=== PATIENT | female | born 1960 | race Caucasian/White ===

== ENCOUNTER 2024-04-21 17:30 | Inpatient (IN) | payer BC ==
[~2024-04-21] VITALS: Ht 160 cm; Wt 43.4 kg
[2024-04-21 19:39] LABS: BASOPHILS # (AUTO) 0.1 X10'3 (0-0.2); BASOPHILS % (AUTO) 0.8 % (0-1); EOSINOPHILS % (AUTO) 0.4 % (0-6); HEMATOCRIT 41.1 % (35.0-45.0); HEMOGLOBIN 13.7 g/dl (12.0-16.0); LYMPHOCYTES # (AUTO) 1.8 X10'3 (1.1-4.8); LYMPHOCYTES % (AUTO) 26.5 % (21-51); MEAN CORPUSCULAR HEMOGLOBIN 31.2 PG (27.0-31.0); MEAN CORPUSCULAR HGB CONC 33.4 g/dL (33.0-36.5); MEAN CORPUSCULAR VOLUME 93.3 FL (78-98); MEAN PLATELET VOLUME 9.6 FL (7.4-10.4); MONOCYTES # (AUTO) 0.6 X10'3 (0-0.9); MONOCYTES % (AUTO) 8.1 % (2-12); NEUTROPHILS # (AUTO) 4.4 X10'3 (1.8-7.7); NEUTROPHILS % (AUTO) 64.2 % (42-75); PLATELET COUNT 203 X10'3 (140-440); RED BLOOD COUNT 4.41 X10'6 (4.20-5.60); RED CELL DISTRIBUTION WIDTH 14.3 % (11.5-14.5); WHITE BLOOD COUNT 6.9 X10'3 (4.5-11.0)
[2024-04-21 19:54] LABS: ALANINE AMINOTRANSFERASE 24 U/L (12-78); ALBUMIN 3.8 G/DL (3.4-5.0); ALBUMIN/GLOBULIN RATIO 1.1 (1.1-1.5); ALKALINE PHOSPHATASE 63 IU/L (46-116); ANION GAP 4 (8-16); ASPARTATE AMINO TRANSFERASE 11 U/L (10-37); BILIRUBIN,TOTAL 0.6 MG/DL (0.1-1.0); BLOOD UREA NITROGEN 23 MG/DL (7-18); BUN/CREATININE RATIO 31.9 (10.0-20.0); CALCIUM 9.2 MG/DL (8.5-10.1); CHLORIDE 103 MMOL/L (99-107); CREATININE 0.72 MG/DL (0.40-0.90); GLUCOSE 89 MG/DL (70-104); LIPASE 19 U/L (16-77); POTASSIUM 4.1 MMOL/L (3.5-5.1); SODIUM 139 MMOL/L (135-145); TOTAL PROTEIN 7.2 G/DL (6.4-8.2); eCRCL 55 ML/MIN; eGFR 82 ML/MIN
[2024-04-22 00:23] LABS: URINE HCG NEGATIVE (NEG)
[2024-04-22 00:25] LABS: BILIRUBIN,URINE SMALL (Neg); CLARITY,URINE CLOUDY (Clear); COLOR,URINE YELLOW (Yellow); GLUCOSE, URINE NEGATIVE (Neg); KETONES,URINE 15 mg/dl (Neg); LEUKOCYTE ESTERASE ,URINE NEGATIVE (Neg); NITRITES, URINE NEGATIVE (Neg); OCCULT BLOOD,URINE NEGATIVE (Neg); PROTEIN,URINE 100 mg/dl (Neg)
[2024-04-22 00:36] LABS: UA COLLECTION TYPE CLN CATCH MIDSTREAM
[2024-04-22 00:37] LABS: MUCUS STRANDS MANY /LPF (Neg); SQUAMOUS EPITHELIAL CELL,UR MANY /LPF (FEW)
[2024-04-22 00:38] LABS: BACTERIA,URINE 2+ /HPF (Neg); WBC,URINE 50-100 /HPF (0-4)
[2024-04-22] MEDS: pantoprazole 40 MG vial IV STA (01:02)
[2024-04-22] MEDS: LORazepam 2 mg/ml vial IV ONE (01:03)
[2024-04-22] MEDS: normal saline 1000ml 1,000 ML IV ONE (01:04)
[2024-04-22] MEDS ORDERED: potassium Cl 40MEQ/1/2NS 520ml 520 ML IV PRN (01:10)
[2024-04-22] MEDS ORDERED: magnesium Cl slow-release 64mg tablet PO PRN (01:10)
[2024-04-22] MEDS ORDERED: mag hydrox/Alum hydrox/simeth 30ml oral suspension PO PRN (01:10)
[2024-04-22] MEDS ORDERED: magnesium sulf-water 2g/50mL 50 ML IV PRN (01:10)
[2024-04-22] MEDS ORDERED: ondansetron/PF 4mg/2ml inj IV PRN (01:10)
[2024-04-22] MEDS ORDERED: magnesium hydroxide 30ml (MOM) UD suspension PO PRN (01:10)
[2024-04-22] MEDS ORDERED: acetaminophen 325mg tablet PO PRN ×2 (01:10)
[2024-04-22] MEDS ORDERED: potassium Cl 20 mEq SR tablet PO PRN ×2 (01:10)
[2024-04-22] MEDS ORDERED: LISI20TA28 PO (01:15)
[2024-04-22 01:43] LABS: HEMOGLOBIN A1C 5.7 % (4.5-6.2)
[2024-04-22] MEDS: dextrose 5%-1/2 normal saline 1,000 ML IV SCH (01:56)
[2024-04-22 04:21] LABS: CHOL/HDL RATIO 3.5 (0.00-4.99); CHOLESTEROL 174 MG/DL (0-200); HDL CHOLESTEROL 50 MG/DL (35-60); LDL CHOLESTEROL 101 MG/DL (50-100); MAGNESIUM 1.9 MG/DL (1.5-2.4); POTASSIUM 3.5 MMOL/L (3.5-5.1); TRIGLYCERIDES 81 MG/DL (20-135)
[2024-04-22] MEDS: K and/or MAG REPLACEMENT MC SCH (08:00)
[2024-04-22] MEDS: pantoprazole 40 MG vial IV SCH (08:22)
[2024-04-22] MEDS: enoxaparin 40mg/0.4ml syringe SUBCUT SCH (08:23)
[2024-04-22] MEDS: lisinopril 10 MG tablet PO SCH (08:23)
[2024-04-22] MEDS: CefTRIAXone/D5W-Rocephin 1gm 50 ML IV SCH (08:26)
[2024-04-22] MEDS: atorvastatin 20mg tablet PO SCH (08:26)
[2024-04-22] MEDS: magnesium sulf-water 4G/100mL 100 ML IV PRN (11:34)
[2024-04-22 16:10] VITALS: BP 137/77; PULSE 52; RESP 16
[2024-04-22] MEDS ORDERED: fentaNYL/PF 50MCG/1 ML 2ML syringe ONE (16:11)
[2024-04-22] MEDS ORDERED: MIDAZolam 1 MG/ML 5ML VIAL ONE (16:12)
[2024-04-22 16:56] VITALS: BP 134/78; PULSE 52; RESP 14; O2SAT 97
[2024-04-22 17:06] VITALS: BP 157/69; PULSE 50; RESP 11; O2SAT 94
[2024-04-22 17:16] VITALS: BP 138/70; PULSE 48; RESP 13; O2SAT 93
[2024-04-22 17:26] VITALS: BP 141/25; PULSE 47; RESP 12; O2SAT 94
[2024-04-22] MEDS: metoclopramide 5 mg/ml inj IV PRN (20:27)
[2024-04-22] MEDS: nicotine 21mg patch - 24 hr TD ONE (20:27)
[2024-04-22] MEDS: ketorolac trometh. 30mg/ml inj. IV ONE (22:14)
[2024-04-22 22:31] VITALS: BP 153/68; PULSE 69; RESP 16; TEMP 98.3; O2SAT 94
[2024-04-23 05:44] LABS: BASOPHILS % (AUTO) 0.3 % (0-1); EOSINOPHILS % (AUTO) 0.1 % (0-6); HEMATOCRIT 34.6 % (35.0-45.0); HEMOGLOBIN 11.5 g/dl (12.0-16.0); LYMPHOCYTES # (AUTO) 1.2 X10'3 (1.1-4.8); LYMPHOCYTES % (AUTO) 10.7 % (21-51); MEAN CORPUSCULAR HEMOGLOBIN 30.2 PG (27.0-31.0); MEAN CORPUSCULAR HGB CONC 33.1 g/dL (33.0-36.5); MEAN CORPUSCULAR VOLUME 91.4 FL (78-98); MEAN PLATELET VOLUME 9.5 FL (7.4-10.4); MONOCYTES # (AUTO) 0.7 X10'3 (0-0.9); MONOCYTES % (AUTO) 5.6 % (2-12); NEUTROPHILS # (AUTO) 9.7 X10'3 (1.8-7.7); NEUTROPHILS % (AUTO) 83.3 % (42-75); PLATELET COUNT 158 X10'3 (140-440); RED BLOOD COUNT 3.79 X10'6 (4.20-5.60); RED CELL DISTRIBUTION WIDTH 13.4 % (11.5-14.5); WHITE BLOOD COUNT 11.6 X10'3 (4.5-11.0)
[2024-04-23 05:45] LABS: ALANINE AMINOTRANSFERASE 20 U/L (12-78); ALBUMIN 2.7 G/DL (3.4-5.0); ALKALINE PHOSPHATASE 42 IU/L (46-116); ANION GAP 0 (8-16); ASPARTATE AMINO TRANSFERASE 10 U/L (10-37); BILIRUBIN,TOTAL 0.5 MG/DL (0.1-1.0); BLOOD UREA NITROGEN 20 MG/DL (7-18); BUN/CREATININE RATIO 35.1 (10.0-20.0); CALCIUM 8.3 MG/DL (8.5-10.1); CHLORIDE 103 MMOL/L (99-107); CREATININE 0.57 MG/DL (0.40-0.90); GLUCOSE 150 MG/DL (70-104); MAGNESIUM 1.7 MG/DL (1.5-2.4); POTASSIUM 3.2 MMOL/L (3.5-5.1); SODIUM 134 MMOL/L (135-145); TOTAL CARBON DIOXIDE 30.8 MMOL/L (24-32); TOTAL PROTEIN 5.4 G/DL (6.4-8.2); eCRCL 69 ML/MIN; eGFR > 90 ML/MIN
[2024-04-23 06:00] VITALS: BP 122/64; PULSE 56; RESP 14; TEMP 96.5; O2SAT 97
[2024-04-23 10:00] VITALS: BP 128/65; PULSE 68; RESP 14; TEMP 98.7; O2SAT 100
[2024-04-23] MEDS ORDERED: SULF1TAB49 PO (10:04)
[2024-04-23 10:46] VITALS: BP_SYST 122; PULSE 56
[2024-04-23] MEDS ORDERED: lactose-reduced food (Ensure Enlive) - 237ml bottle PO SCH (13:00)
[2024-04-23] MEDS ORDERED: PANT-47 PO (19:55)
== END 2024-04-23 13:05 | disposition home or self-care (01) | DRG 392 ==
LOC: ER 17:31 → ED HOLD 04-22 01:21 → EDBEDREQ 04-22 21:06 → ORTHO 4S 04-22 21:35
PROVIDERS: ADMIT Internal Medicine Critical Care Medicine; ATTEND Internal Medicine
PROC: 0D758ZZ Dilation of Esophagus, Via Natural or Artificial Opening Endoscopic (ICD-10-PCS; principal; 2024-04-22)
DX: K22.2 Esophageal obstruction (principal); N39.0 Urinary tract infection, site not specified; E86.0 Dehydration; E78.5 Hyperlipidemia, unspecified; I10 Essential (primary) hypertension; F17.210 Nicotine dependence, cigarettes, uncomplicated; K44.9 Diaphragmatic hernia without obstruction or gangrene; I44.7 Left bundle-branch block, unspecified; R13.14 Dysphagia, pharyngoesophageal phase; Z79.899 Other long term (current) drug therapy; Z88.8 Allergy status to other drugs, medicaments and biological substances; Z71.6 Tobacco abuse counseling
CPT/HCPCS: 36415; 43248; 71045; 80053; 80061; 81001; 81025; 83036; 83690; 83735; 84132; 84443; 84484; 85025; 87081; 87088; 93005; 99152; 99153; 99285; A4620; C1769; G0378; J0696; J1650; J1885; J2060; J2250; J2470; J2765; J3010; J7030